=== PATIENT | female | born 1970 | race American Indian/Alaskan Native ===

== ENCOUNTER 2016-12-09 01:33 | Emergency (ER) | payer SELFPAY ==
[2016-12-09] MEDS ORDERED: NACL 0.9% 1000 ML 1,000 ML IV ONE (01:51)
[2016-12-09] MEDS ORDERED: DILAUDID IV ONE ×2 (01:52→05:14)
[2016-12-09] MEDS ORDERED: NACL 0.9% 500 ML 500 ML IV ONE (01:53)
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
[2016-12-09 02:45] LABS: Hematocrit 35.4 % (30.3-42.9); Hemoglobin 12.1 gm/dl (10.1-14.3); Mean Corpuscular HGB Conc 34 % (30-34); Mean Corpuscular Hemoglobin 34 pg (28-32); Mean Corpuscular Volume 100 fl (79-97); Platelet Count 388 K/mm3 (140-440); Red Blood Count 3.54 M/mm3 (3.65-5.03); Red Cell Distribution Width 14.2 % (13.2-15.2); White Blood Count 4.6 K/mm3 (4.5-11.0)
[2016-12-09] MEDS ORDERED: NACL ONE (02:56)
[2016-12-09 03:05] LABS: Alanine Aminotransferase 32 units/L (7-56); Albumin/Globulin Ratio 1.1 %; Alkaline Phosphatase 83 units/L (35-129); Anion Gap 19 mmol/L; Blood Urea Nitrogen 12 mg/dL (7-17); Calcium 8.4 mg/dL (8.4-10.2); Carbon Dioxide 24 mmol/L (22-30); Chloride 98.3 mmol/L (98-107); Creatine Kinase 76 units/L (30-135); Glucose 71 mg/dL (65-100); Potassium 3.7 mmol/L (3.6-5.0); Sodium 138 mmol/L (137-145); Total Protein 7.5 g/dL (6.3-8.2)
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
[2016-12-09 03:56] LABS: Blastocytes % (Manual) 0 %; Eosinophils % (Manual) 0 % (0.0-4.3)
[2016-12-09 03:57] LABS: Anisocytosis 1+; Diff Status Complete; Hypochromasia Few; Stomatocytes Few
[2016-12-09 04:04] LABS: INR 1.06 (0.87-1.13)
[2016-12-09 04:05] LABS: Partial Thromboplastin Time 31.2 Sec. (24.2-36.6)
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
[2016-12-09 05:47] VITALS: BP 125/72
== END 2016-12-09 05:47 | disposition home or self-care (01) ==
LOC: ED 01:33
DX: R51 Headache (principal); M54.2 Cervicalgia; R10.9 Unspecified abdominal pain; Y08.89XA Assault by other specified means, initial encounter; Y93.9 Activity, unspecified; Y92.9 Unspecified place or not applicable; Y99.9 Unspecified external cause status
CPT/HCPCS: 36415; 70450; 71010; 71260; 72125; 74177; 80053; 82550; 84484; 85007; 85025; 85610; 85730; 93005; 93010; 96361; 96374; 96376; 99285; J1170; J7040; Q9967